=== PATIENT | female | born 1950 | race African-American/Black ===

== ENCOUNTER → 2016-06-21 10:24 | Outpatient (CLI) | payer MEDICARE, MEDICAID ==
[2016-02-17 23:08] VITALS: BMI 34.1
[~2016-06-21 10:24] MED LIST: AMBIEN10 MG PO; ARICEPT10 MG PO; BENADRYL50 MG PO; CARAFATE1 G PO; CELEXA20 MG PO; CYCLOBENZAPRINE10 MG PO; ESTRACE 0.5 MG0.5 MG PO; FOLBIC RF TABL1 EACH PO; GLYCOLAX527 GM PO; HYDROCODONE-APA1 TAB PO; IBUPROFEN600 MG PO; K-DUR20 MEQ PO; LATUDA40 MG PO; NEURONTIN 300300 MG PO; OMEPRAZOLE20 M1 PO; PEPCID20 MG PO; TRAZODONE HCL150 MG PO; VOLTAREN100 GM TOPICAL; XANAX1 MG PO; ZANAFLEX4 MG PO
== END | disposition home or self-care (01) ==
LOC: D.CT 06-18 15:00
DX: G89.18 Other acute postprocedural pain (principal)

== ENCOUNTER → 2016-08-24 07:18 | Outpatient (CLI) | payer MEDICARE, MEDICAID ==
[2016-02-17 23:08] VITALS: BMI 34.1
== END | disposition home or self-care (01) ==
LOC: D.US 08-12 09:30
DX: R10.9 Unspecified abdominal pain (principal)

== ENCOUNTER 2016-08-24 07:35 | Emergency (ER) | payer MEDICARE, MEDICAID ==
[2016-02-17 23:08] VITALS: BMI 34.1
== END 2016-08-24 08:11 | disposition home or self-care (01) ==
LOC: D.ER 07:35
DX: F41.9 Anxiety disorder, unspecified (principal); F20.9 Schizophrenia, unspecified; R10.9 Unspecified abdominal pain

== ENCOUNTER 2018-03-31 11:11 | Inpatient (IN) | payer MEDICARE, MEDICAID ==
[~2018-03-31] VITALS: Ht 167.6 cm; Wt 100.7 kg
--- NOTE | ~2018-03-31 | PN ---
PATIENT:BOUBACAR HALL MEDICAL RECORD: [id number] LOCATION:[facility] ADMISSION DATE: 03/31/18 PROGRESS NOTE DATE OF SERVICE: 04/06/2018 SUBJECTIVE: The patient's case was discussed with staff. She has no new complaint. OBJECTIVE: The patient denies intent to harm herself or others. She generally tolerates her medicines well. She was quite agitated yesterday and almost required a p.r.n. medication. The report I received during the team meeting was that she was just about to receive something when she did calm down. The patient is still not eating adequately. She is still making delusional statements, although she is not wanting to harm herself. I am going to increase the dose of her Geodon slightly. I will monitor her for clinical changes associated with its use. Her long-term prognosis is guarded. TRANSINT:[id number] Voice Confirmation ID: [id number] DOCUMENT ID: [id number] PATRICIA ORELLANA MD at 1627 CC: [id number] DICTATION DATE: 04/06/18 170 MIXER WHIPPED TOPPING: 04/06/188 ADM IN [facility] [address] [place] [address]
--- NOTE | ~2018-03-31 | PN ---
PATIENT:BOUBACAR HALL MEDICAL RECORD: [id number] LOCATION:[facility] ADMISSION DATE: 03/31/18 PROGRESS NOTE DATE OF SERVICE: 04/04/2018 SUBJECTIVE: The patient's case was discussed with staff. She has no new complaint. OBJECTIVE: The patient denies intent to harm herself or others. She generally tolerates her medicines well. She is paranoid and withdrawn. She says she is not planning to hurt herself. She was observed crying in the corner earlier today, but when asked about it said she was not crying and would not explain. ASSESSMENT: No change in diagnoses. PLAN: The patient's current medicines have been reviewed. I am going to increase the dose of her Effexor slightly for its antidepressant effect and I will also start her on a low dose of Habitrol. TRANSINT:[id number] Voice Confirmation ID: [id number] DOCUMENT ID: [id number] PATRICIA ORELLANA MD at 0827 CC: [id number] DICTATION DATE: 04/04/18 1439 OIL HEATERMAN: 04/04/18 1503 ADM IN [facility] [address] [place] [id number]
--- NOTE | ~2018-03-31 | PN ---
PATIENT:BOUBACAR HALL MEDICAL RECORD: [id number] LOCATION:[facility] ADMISSION DATE: 03/31/18 PROGRESS NOTE DATE OF SERVICE: 04/07/2018 SUBJECTIVE: The patient's case was discussed with staff. She has no new complaint. OBJECTIVE: The patient is doing better according to the charge nurse today and when I went into the day room to see her, she was standing next to wall gesturing to someone or something or at least so what appeared. When asked about it, she looked a little embarrassed and said that there was nothing going on. I am not sure what to make of that, but the patient is mentally ill. She has significantly improved and she is not having thoughts of harming herself. She is also tolerating her medicines well. ASSESSMENT: No change in diagnoses. PLAN: Despite the little observation that I had today, I think she is clearly better on the whole and if this level of improvement continues, I will discharge her from the hospital on Tuesday. TRANSINT:[id number] Voice Confirmation ID: [id number] DOCUMENT ID: [id number] PATRICIA ORELLANA MD at 1249 CC: [id number] DICTATION DATE: 04/07/18 1638 TWISTING PRESS OPERATOR: 04/07/18 1730 ADM IN [place] [id number] [place] [id number]
--- NOTE | ~2018-03-31 | PN ---
PATIENT:BOUBACAR HALL MEDICAL RECORD: [id number] LOCATION:[facility] ADMISSION DATE: 03/31/18 PROGRESS NOTE DATE OF SERVICE: 04/03/2018 SUBJECTIVE: The patient's case was discussed with staff. She has no new complaint. OBJECTIVE: The patient is denying intent to harm herself or others and she does so more forcefully today. Unfortunately, I have gotten some additional information about her activities with her primary care physician. Apparently for a week, she has been calling the office saying she is having thoughts about hurting herself and then minimizing that whenever they began to intervene. This hospitalization was precipitated by an appointment with her primary care physician where she not only said she was going to kill herself, but described how she was going to do it and that is to stab herself in the chest. She repeated that she was having those thoughts to me at the time of admission or shortly thereafter as well as to the nurse assisting with her admission. The patient is now saying that all of that is just a misunderstanding and that she wants to go home. ASSESSMENT: No change in diagnoses. PLAN: The patient's Celexa will be stopped, I have been tapering it since it clearly is not helping. I am going to start her on Effexor at a dose of 25 mg daily. Her long-term prognosis is guarded. TRANSINT:[id number] Voice Confirmation ID: [id number] DOCUMENT ID: [id number] PATRICIA ORELLANA MD at 1203 CC: [id number] DICTATION DATE: 04/03/18 1548 FAN BLADE ALIGNER: 04/03/18 1745 ADM IN [facility] [address] [place] [id number]
--- NOTE | ~2018-03-31 | PN ---
PATIENT:BOUBACAR HALL MEDICAL RECORD: [id number] LOCATION:[facility] ADMISSION DATE: 03/31/18 PROGRESS NOTE DATE OF SERVICE: 04/02/2018 OBJECTIVE: The patient was seen for hospital rounds. She has been admitted to the hospital because of psychotic symptoms. She has no new complaint today. OBJECTIVE: The patient is flat and blunted. She is looking out the window. She appears to be responding to internal stimuli; but when asked about it, denies it. She says she does not want to hurt herself, but she says in a way that is not very convincing. She pauses, looks out the window for a minute, and then says no. I think she is certainly psychotic and is not revealing all of her symptoms to me. ASSESSMENT: No change in diagnoses. PLAN: The patient will have her Latuda discontinued. I am going to start her on a low dose of Geodon tomorrow. My intention is to also taper her off the Celexa and Ambien; but after the big changes that were made on the first day of her hospitalization, I am going to slow that process a little bit so that I can have a better understanding of changes that I observe based on individual manipulations of medicines rather than large block manipulations. TRANSINT:[id number] Voice Confirmation ID: [id number] DOCUMENT ID: [id number] PATRICIA ORELLANA MD at 1502 CC: [id number] DICTATION DATE: 04/02/18 1134 CHIEF DEPUTY: 04/02/18 1802 ADM IN [place] [id number] [place] [address]
--- NOTE | ~2018-03-31 | PN ---
PATIENT:BOUBACAR HALL MEDICAL RECORD: [id number] LOCATION:[facility] ADMISSION DATE: 03/31/18 PROGRESS NOTE DATE OF SERVICE: 04/05/2018 SUBJECTIVE: The patient's case was discussed with staff. She has no new complaint. OBJECTIVE: The patient denies intent to harm herself or others. She tolerates her medicines well. ASSESSMENT: No change in diagnoses. PLAN: The patient makes some delusional comments. She is not actively suicidal and I am more comfortable with her statements about this today than I have been other days. I am still going to increase the dose of her Effexor slightly. I am not pleased with her living situation and I am going to discuss various options with the treatment team later today. TRANSINT:[id number] Voice Confirmation ID: [id number] DOCUMENT ID: [id number] PATRICIA ORELLANA MD at 1613 CC: [id number] DICTATION DATE: 04/05/18 1215 FERTILIZER PROCESSING SUPERVISOR: 04/05/18 1238 ADM IN [place] [id number] [place] [address]
--- NOTE | ~2018-03-31 | PN ---
PATIENT:BOUBACAR HALL MEDICAL RECORD: [id number] LOCATION:[facility] ADMISSION DATE: 03/31/18 PROGRESS NOTE DATE OF SERVICE: 04/09/2018 SUBJECTIVE: The patient's case was discussed with staff. She has no new complaint. OBJECTIVE: The patient denies intent to harm herself or others. She tolerates her medicines well. Eye contact is fair. ASSESSMENT: No change in diagnoses. PLAN: Brief supportive and educational interventions were made. Long-term prognosis is guarded. The patient is in good behavioral control. I anticipate she can be transitioned out of the hospital tomorrow. TRANSINT:[id number] Voice Confirmation ID: [id number] DOCUMENT ID: [id number] PATRICIA ORELLANA MD at 1556 CC: [id number] DICTATION DATE: 04/09/18 1310 BASEBALL COACH: 04/09/18 1525 DIS IN 04/10/18 [facility] [address] [place] [address]
--- NOTE | ~2018-03-31 | PSY ---
PATIENT NAME:BOUBACAR HALL MEDICAL RECORD: [id number] : 52 LOCATION:[facility] ADMISSION DATE: 03/31/18 ACCOUNT: [id number] PSYCHIATRIC EVALUATION DATE OF EVALUATION: 04/01/18 PSYCHIATRIC EVALUATION IDENTIFYING DATA: The patient is 67 years old and she is admitted to the hospital on a voluntary basis. CHIEF COMPLAINT: Suicidal thoughts. HISTORY OF PRESENT ILLNESS: The patient was sent to the Emergency Room after she expressed thoughts of wanting to harm herself to her primary care physician. She was subsequently evaluated in the Emergency Room and admitted here. Apparently, she is having some auditory hallucinations at home. She has a long history of chronic mental illness and has been thinking about stabbing herself. She says that she wants to do this because her children do not come and see her. All of the people who live around her only come to see her and have anything to do with her if she can give them money or food. She has had these thoughts for about 2 months. They have been increasingly frequent and severe and intense. She says they mostly occur at night and they do wake her up. She complains of chronic discomfort in her left shoulder and says that all of these things together cause her to want to . Again, she says she would kill herself by stabbing herself with a knife. PAST MEDICAL HISTORY: Significant for chronic arthritis and joint replacement. She also has a history of hypertension. She also is having some gastroesophageal reflux disease. PAST PSYCHIATRIC HISTORY: Significant for numerous hospitalizations at various facilities. I treated her years ago at another hospital. 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 FAMILY HISTORY: Significant for cardiovascular disease, but there is no reported family history of psychiatric disease. ALLERGIES: ASPIRIN, PENICILLIN AND CIPRO. MEDICATIONS: Include Mobic, Carafate, Latuda, Flexeril, Xanax, Zanaflex, hydrocodone, Neurontin, Mobic, Ambien, Celexa, trazodone, Pepcid, potassium, Aricept and GlycoLax. SOCIAL HISTORY: The patient is . She has 3 adult children. She is currently unemployed and on disability. She denies a history of drug or alcohol abuse. MENTAL STATUS EXAMINATION: The patient is awake, alert and oriented to person, place and somewhat to time and situation. Her mood is flat. Her affect is constricted. Thought processes are circumstantial. Memory, concentration, and abstraction abilities are moderately impaired and she denies any intent to harm herself or others as well as overt psychotic symptoms. ASSESSMENT: AXIS I: Schizoaffective disorder, depressed type. AXIS II: Deferred. AXIS III: Hypertension, osteoarthritis, chronic joint pain. AXIS IV: Moderate stressors. AXIS V: Global Assessment of Functioning is 30. PLAN: At this time, the patient is admitted to the hospital for a comprehensive medical, psychological and social evaluation. She will be treated with both mood stabilizing and memory enhancing antidepressant and antipsychotic medications as deemed appropriate. She will be monitored for any clinical changes associated with the medications. Her long-term prognosis is guarded. TRANSINT:[id number] Voice Confirmation ID: [id number] DOCUMENT ID: [id number] PATRICIA ORELLANA MD at 1117 CC: [id number] DICTATION DATE: 04/01/18 1141 DIE STAMPING PRESS OPERATOR: 04/01/18 1158 [facility] IN [place] [id number] [place] [address]
--- NOTE | ~2018-03-31 | PN ---
PATIENT:BOUBACAR HALL MEDICAL RECORD: [id number] LOCATION:[facility] ADMISSION DATE: 03/31/18 PROGRESS NOTE DATE OF SERVICE: 04/08/2018 SUBJECTIVE: The patient's case was discussed with staff. She has no new complaint. OBJECTIVE: The patient is tolerating her current medications well. She has not been aggressive. She still regularly says things that are delusional, but on the whole I think that her psychosis is clearly better. ASSESSMENT: No change in diagnoses. PLAN: The patient will be maintained on current medicines. I anticipate that she can be transitioned out of the hospital soon. TRANSINT:[id number] Voice Confirmation ID: [id number] DOCUMENT ID: [id number] PATRICIA ORELLANA MD at 1556 CC: [id number] DICTATION DATE: 04/08/18 1301 TECHNICAL CONSULTANT: 04/08/18 1308 DIS IN 04/10/18 [place] [id number] [place] [address]
--- NOTE | ~2018-03-31 | DS ---
PATIENT:BOUBACAR HALL :52 MEDICAL RECORD: [id number] DISCHARGE SUMMARY ADMISSION DATE: 03/31/18 DISCHARGE DATE: 04/10/18 IDENTIFYING DATA: The patient is 67 years old and she was admitted to the hospital secondary to suicidal thoughts. The patient came to the Emergency Room after she expressed thoughts of wanting to kill herself to her primary care physician. She subsequently was evaluated in the Emergency Room and admitted here. She was having active hallucinations and is a known chronically mentally ill person. She was planning to stab herself in the chest. Precipitating factors included a lack of support from her children. HOSPITAL COURSE: The patient was admitted to the hospital and evaluated from both a medical, psychological, and social standpoint. She was treated with both mood stabilizing and memory enhancing medications. She had an improvement in her mood and a loss of suicidal thoughts. She also had a dramatic reduction in her psychotic symptoms, although she still maintained some delusional content when she spoke. She was subsequently discharged to home with supervision. DISCHARGE DIAGNOSES: AXIS I: Schizoaffective disorder, depressed type. AXIS II: None. AXIS III: Hypertension, osteoarthritis, chronic joint pain. AXIS IV: Moderate stressors. AXIS V: Global Assessment Of Functioning is 35. PLAN: At the time of discharge, the patient was not acutely dangerous to herself or others. She was tolerating her medications well. Her long-term prognosis is guarded. TRANSINT:[id number] Voice Confirmation ID: [id number] DOCUMENT ID: [id number] PATRICIA ORELLANA MD at 1021 CC: [id number] DICTATION DATE: 04/12/18 1143 CHAIN REPAIRER: 04/13/18 0053 DIS IN 04/10/18 [facility] [address] [place] [id number]
[2018-03-31] MEDS ORDERED: MOBIC7.5 MG PO (11:21)
[2018-03-31 11:41] LABS: APPEARANCE CLEAR (CLEAR); BILIRUBIN NEGATIVE (NEGATIVE); COLOR YELLOW (YELLOW); GLUCOSE NEGATIVE (NEGATIVE); KETONE NEGATIVE (NEGATIVE); NITRITE NEGATIVE (NEGATIVE); PROTEIN NEGATIVE (NEGATIVE); UROBILINOGEN NORMAL (NORMAL)
[2018-03-31 11:51] LABS: UDS - AMPHET NEGATIVE QUAL (NEGATIVE); UDS - BARB NEGATIVE QUAL (NEGATIVE); UDS - BENZO NEGATIVE QUAL (NEGATIVE); UDS - COCAINE NEGATIVE QUAL (NEGATIVE); UDS - OPIATE NEGATIVE QUAL (NEGATIVE); UDS - PCP NEGATIVE QUAL (NEGATIVE); UDS - THC NEGATIVE QUAL (NEGATIVE)
[2018-03-31 11:57] LABS: BASOPHILS 0.2 % (0-2); EOSINOPHILS 1.1 % (0-7); HEMATOCRIT 36.6 % (36.0-48.0); HEMOGLOBIN 11.8 g/dL (12-16); IMMATURE GRANULOCYTES 0.2 % (0-5); LYMPHOCYTES 34.5 % (15-50); MCH 31.1 pg (26.0-34.0); MCHC 32.2 g/dL (31.0-37.0); MCV 96.6 fL (80.0-100.0); MEAN PLATELET VOLUME 9.9 fL (7.4-10.4); MONOCYTES 5.3 % (2-11); NEUTROPHILS 58.7 % (40-80); RBC 3.79 10x6/uL (4.00-5.40); RDW 14.9 % (11.5-14.5); WBC 5.3 10x3/uL (4.8-10.8)
[2018-03-31 12:05] LABS: PLATELET COUNT 260 10x3/uL (130-400)
[2018-03-31 12:13] LABS: ACETAMINOPHEN 0.9 ug/mL (10.0-30.0); ALBUMIN 3.8 g/dL (3.4-5.0); ALKALINE PHOSPHATASE 126 U/L (46-116); ALT (SGPT) 26 U/L (10-68); BILIRUBIN - TOTAL 0.21 mg/dL (0.2-1.3); CALC OSMOLALITY 273 mosm/kg (275-300); CARBON DIOXIDE 29.3 mmol/L (21.0-32.0); CHLORIDE - SERUM 102 mmol/L (98-107); CREATININE - SERUM 0.8 mg/dL (0.6-1.3); GLUCOSE 87 mg/dL (74-106); POTASSIUM - SERUM 4.4 mmol/L (3.5-5.1); PROTEIN - SERUM 7.5 g/dL (6.4-8.2); SODIUM 137 mmol/L (136-145); UREA NITROGEN 16 mg/dL (7-18); eGFR NON AFRICAN AMERICAN 76 mL/min (90-120)
[2018-03-31 16:42] LABS: CHOL - HDL RATIO 2.2 ratio (2.3-4.1)
[2018-03-31 17:12] VITALS: BP 140/79
[2018-03-31 20:23] VITALS: BP 125/56
[2018-04-01 10:15] VITALS: BP 136/63
[2018-04-01 20:33] VITALS: BP 140/70
[2018-04-02 07:00] VITALS: BP 127/81
[2018-04-02 20:00] VITALS: BP 166/97
[2018-04-03 00:50] VITALS: BP 166/97
[2018-04-03 07:00] VITALS: BP 140/75
[2018-04-03 11:43] VITALS: BMI 35.9
[2018-04-03 14:43] VITALS: Ht 167.6 cm; Wt 100.7 kg
[2018-04-03 19:38] VITALS: BP 156/91
[2018-04-04 08:00] VITALS: BP 159/56
[2018-04-04 19:51] VITALS: BP 103/51
[2018-04-05 09:04] VITALS: BP 130/70
[2018-04-05 20:04] VITALS: BP 154/97
[2018-04-06 07:36] VITALS: BP 144/92
[2018-04-06 20:49] VITALS: BP 132/79
[2018-04-07 11:00] VITALS: BP 125/93
[2018-04-07 20:29] VITALS: BP 135/75
[2018-04-08 08:00] VITALS: BP 160/60
[2018-04-08 20:23] VITALS: BP 121/57
[2018-04-09 08:00] VITALS: BP 157/55
[2018-04-09] MEDS ORDERED: EFFEXOR37.5 MG PO (13:07)
[2018-04-09] MEDS ORDERED: GEODON20 MG PO (13:07)
[2018-04-09] MEDS ORDERED: VITAMIN D5000 UNIT PO (13:08)
[2018-04-09] MEDS ORDERED: LIDODERM 5 %1 PATCH TRANSDERM (13:08)
[2018-04-09 20:20] VITALS: BP 132/76
[2018-04-10 09:18] VITALS: BP 123/78
== END 2018-04-10 12:10 | disposition home or self-care (01) | DRG 885 ==
LOC: D.ER 11:11 → D.EDHOLD 14:52 → D.PSYCH 14:52
PROVIDERS: Family Medicine; Psychiatry & Neurology Psychiatry
DX: F25.1 Schizoaffective disorder, depressive type (principal); R45.851 Suicidal ideations; I10 Essential (primary) hypertension; M19.90 Unspecified osteoarthritis, unspecified site; G47.00 Insomnia, unspecified; F03.90 Unspecified dementia, unspecified severity, without behavioral disturbance, psychotic disturbance, mood disturbance, and anxiety; G62.9 Polyneuropathy, unspecified; G89.29 Other chronic pain; K59.00 Constipation, unspecified; E55.9 Vitamin D deficiency, unspecified; Z72.0 Tobacco use; N32.81 Overactive bladder